=== PATIENT | female | born 1995 | race Caucasian/White ===

== ENCOUNTER 2022-07-18 16:08 | Emergency (ER) | payer OTHER, SELFPAY ==
--- NOTE | ~2022-07-18 | US_ITS ---
EXAMINATION: US OB <=14 wk fetus w TV DATE: 07/18/2022 17:22 INDICATION: Vaginal bleeding during first trimester . TECHNIQUE: Real-time pelvic ultrasound utilizing both a transvaginal and transabdominal probe was pe rformed. The interpreting radiologist was not present for the study. COMPARISON: None. FINDINGS: The uterus measures 11.6 x 5.7 x 9.2 cm. There is an intrauterine gestational sac. A single fetus is identified. The crown rump length measures 2.0 cm, which correlates with an estimated gestational ag e of 8 weeks and 4 days. There is no discernible heart motion on either cine grayscale imaging or M-mode Doppler. The right ovary is not visualized The left ovary measures 3.0 x 1.9 x 1.8 cm. Duraflow identified wit hin the left ovary on color Doppler. There is no free fluid in the pelvis. IMPRESSION: 1. demise with no discernible heart motion in a single intrauterine fetus with crown-rump length of 2.0 cm corresponding to an estimated gestational age of 8 weeks and 4 days. Reviewed, dictated and finalized at location A. OR VICE PRESIDENT & GENERAL COUNSEL IMPRESSION: 1. demise with no discernible heart motion in a single intrauterine fetus with crown-rump length of 2.0 cm corresponding to an estimated gestation al age of 8 weeks and 4 days.
[2022-07-18 16:25] VITALS: BP 123/60; PULSE 89; RESP 16; TEMP 36.4; O2SAT 100
--- NOTE | 2022-07-18 18:23 | ED.FEMALEGU ---
HPI - Female Genitourinary General Chief complaint: Vaginal Bleeding Stated complaint: vaginal bleeding Time Seen by Provider: 07/18/22 18:06 Source: patient Mode of arrival: ambulatory Limitations: no limitations History of Present Illness HPI Narrative: Patient is a 26-year-old female who presents to the ED with report of vaginal spotting. Patient is and currently approx 12 weeks gestation. Patient currently lives in [place] and sees a filter changer, Ari Pompa, with [facility]. She had a confirmed intrauterine via US at 8 weeks gestation there. Patient states today she developed some light brown vaginal spotting. She contacted her EXTERIOR DESIGNER and was told to monitor symptoms. The bleeding then became bright red and she passed a small blood clot. She also developed some lower abdominal cramping. She was then referred to the ED for further evaluation. Patient has not taken any Tylenol today. She does not want any currently. She states the bleeding has resolved for the most part currently. Denies any recent fever, nausea, vomiting, urinary symptoms. Review of Systems Review of Systems: CONSTITUTIONAL: Denies fever, chills, or sweats. CARDIOVASCULAR: Denies chest pain. RESPIRATORY: Denies dyspnea. GASTROINTESTINAL: See HPI. GENITOURINARY: See HPI. All systems reviewed & are unremarkable except as noted in HPI and below PMFSH Past Medical History Medical History No pertinent past medical history Surgical History Surgical History No pertinent past surgical history Social History Social History Smoking status: Never smoker Exam Narrative: GENERAL: Well appearing, obese, non-toxic, in no acute distress. HEAD: Normocephalic, atraumatic. NECK: Supple. No adenopathy, no masses. RESPIRATORY: Airway patent, respirations nonlabored. Clear to auscultation bilaterally, no rales, rhonchi, wheezing. CARDIOVASCULAR: Regular rate and rhythm without murmurs, rubs, or gallops. Radial pulses 2+ and equal bilaterally. ABDOMINAL: Soft, no significant tenderness to palpation, nondistended, no hepatosplenomegaly. Normoactive BS. MUSCULOSKELETAL: Moves all extremities. Strength/ROM intact without gross deformities. SKIN: Warm, dry, normal color. No rashes. NEURO: A&O X3. Speech clear. Cranial nerves II-XII grossly intact. Steady gait. No ataxic movements. PSYCHIATRIC: Appropriate mood and affect. Normal interaction. Course Vital Signs Vital signs: Vital Signs Temperature 97.6 F 07/18/22 16:25 Pulse Rate 89 07/18/22 16:25 Respiratory Rate 16 07/18/22 16:25 Blood Pressure 123/60 07/18/22 16:25 Pulse Oximetry 100 07/18/22 16:25 Oxygen Delivery Room Air 07/18/22 16:25 Temperature 98 F 07/18/22 20:27 Pulse Rate 89 07/18/22 20:27 Respiratory Rate 18 07/18/22 20:27 Blood Pressure 128/79 07/18/22 20:27 Pulse Oximetry 99 07/18/22 20:27 Oxygen Delivery Room Air 07/18/22 16:25 MDM - Female Genitourinary MDM Narrative Medical decision making narrative: Patient presented to ED with vaginal spotting, 12 weeks gestation, G1, P0. Visiting from [place]. Vital stable upon arrival. CBC with mild anemia at 11.7, no records to compare to. Patient denying any active bleeding at this time. Beta quant 2694. Again no records to compare to. Patient's blood type O+, no RhoGAM required. Unfortunately, ultrasound obtained showing demise, no heart tones identified, gestational age 8 weeks 4 days. I discussed lab and imaging findings with patient and parents at bedside. I was able to contact patient's EXTERIOR DESIGNER clinic in [place], talked with EXTERIOR DESIGNER on-call, updated on ultrasound findings and plan. Discussed options with patient, watchful waiting versus induction of miscarriage via medication versus D&C
[2022-07-18 18:29] LABS: Basophils Percent Auto 0.4 % (0.2-1.2); Eosinophils Absolute Auto 0.1 K/mm3 (0-0.3); Eosinophils Percent Auto 0.8 % (0-4.4); Hematocrit 36.1 % (37.0-47.0); Hemoglobin 11.7 g/dL (12.0-15.0); Immature Granulocyte Absolute 0.03 K/mm3 (0.00-0.031); Immature Granulocyte Percent A 0.4 % (0-0.5); Lymphocytes Absolute Auto 1.57 K/mm3 (0.9-3.2); Lymphocytes Percent Auto 18.6 % (18.3-44.2); Mean Corpuscular HGB Conc 32.4 g/dl (32-36); Mean Corpuscular Hemoglobin 27.5 pg (26-34); Mean Corpuscular Volume 84.7 fl (80-100); Mean Platelet Volume 8.9 fl (7.4-10.4); Monocytes Absolute Auto 0.4 K/mm3 (0.1-0.6); Monocytes Percent Auto 4.8 % (2.6-8.5); Neutrophils Absolute Auto 6.3 K/mm3 (1.3-6.7); Platelet Count Result 294 k/mm3 (150-375); Red Blood Count 4.26 M/mm3 (4.2-5.4); Red Cell Distribution Width 13.2 % (11.5-14.5); White Blood Count 8.4 K/mm3 (4.5-10.0)
[2022-07-18 20:27] VITALS: BP 128/79; PULSE 89; RESP 18; TEMP 36.6; O2SAT 99
== END 2022-07-18 20:27 | disposition home or self-care (01) ==
PROVIDERS: Physician Assistant; Emergency Provider Physician Assistant
DX: O02.1 Missed abortion (principal); Z3A.08 8 weeks gestation of pregnancy
CPT/HCPCS: 36415; 76801; 76817; 84702; 85025; 85461; 86850; 86900; 86901; 99284

== ENCOUNTER 2022-07-22 07:33 | Outpatient (CLI) | payer OTHER, SELFPAY ==
--- NOTE | ~2022-07-22 | US_ITS ---
EXAMINATION: US OB <=14 wk fetus w TV DATE: 07/22/2022 08:13 INDICATION: Missed . TECHNIQUE: Real-time transabdominal and transvaginal pelvic ultrasound was performed. COMPARISON: Ultrasound 07/18/2022 FINDINGS: TRANSABDOMINAL ULTRASOUND: The uterus measures 11.1 x 5.5 x 7.5 cm. TRANSVAGINAL ULTRASOUND: The endometrial complex measures 15 mm in thickness. There is a gestational sac in the vagina. The crown rump length measures 2.2 cm, which correlates with an estimated ge stational age of 9 weeks and 0 day(s). heart motion was not identified on the ultrasound from . The right ovary is not visualized. The left ovary measures 3.1 x 2.0 x 1.7 cm. There is no fr ee fluid in the pelvis. IMPRESSION: 1. Spontaneous in progress with the gestational sac now in the vagina. Reviewed, dictated and finalized at location A. IMPRESSION: 1. Spontaneous in progress with the gestational sac now in the vagina .
== END 2022-07-22 07:34 | disposition home or self-care (01) ==
PROVIDERS: Visit Provider Obstetrics & Gynecology
DX: O02.1 Missed abortion (principal)
CPT/HCPCS: 76801; 76817

== ENCOUNTER 2022-07-23 00:43 | Day surgery (SDC) | payer OTHER, SELFPAY ==
[2022-07-21 15:50] VITALS: BMI 30.9
--- NOTE | 2022-07-21 15:53 | PC.NURSE ---
Report to the Outpatient Waiting Room, entrance under the green pavilion located off [facility], at time 0600 on date 07/23/22. Planned Procedure Time: 0730. Time changes happen often and if your time is changed the preop area will call you the afternoon before. - You and your visitor will be asked to self-screen and do not enter if you have any COVID symptoms. - Only one visitor is requested with a max of two and NO children visitors are allowed at this time. - The patient visitor may be requested to leave or wait in car when not with patient due to distancing restrictions. - A mask is optional within the hospital at this time. Patients may have clear liquids (water, carbonated beverages, clear teas, apple juice) until 3 hours prior to surgery with a maximum of 20 ounces. - No food from midnight until time of surgery Take the following medications with a SIP of water the morning of surgery: PAIN PILL IF NEEDED DO NOT STOP ANY OF YOUR OTHER PRESCRIPTION MEDICATIONS PRIOR TO SURGERY ?EXCEPT THE FOLLOWING Medications to discontinue per physician: N/A Date to take last dose: N/A Please no make-up, nail comoran, hairspray, perfume, deodorant, or body powder the day of surgery. No jewelry (including any body piercings) or valuables the day of surgery, leave them at home. Please take a shower or bath the night before, or the morning of, surgery with an antibacterial soap. Wear comfortable, loose fitting clothing. - Jewelry must be removed prior to entering the operating room. Rings and piercings that are not removed may be cut off. - The hospital will not accept responsibility for valuables. - Please leave all valuables, including medications, at home the day of surgery. If you are going home after surgery, a licensed pedicab driver must drive you home. - NO public transportation without another adult if you receive anesthesia. - We recommend that an adult stay with you for 24 hours following discharge. - We also recommend that you do not drive, make important decision, drink alcoholic beverages, or take any drugs that were not prescribed by your health care provider for at least 24 hours after your discharge time. Follow any additional instructions given to you from your surgeon. If you or anyone in your household have experienced Covid symptoms in the past week, please notify your surgeon or the nurse liaison at the phone number below for possible testing. Telephone instructions given to PAPITO ESCOBAR and asked if any additional questions and then verbalized understanding. Patient advised to call surgeon office or pre surgery nurse liaison [phone] if any additional questions.
[2022-07-23] MEDS: ACETAMINOPHEN 500 MG TABLET 1000 MG PO (06:54)
[2022-07-23] MEDS: LACTATED RINGERS 1,000 ML 30 ML IV CONT (06:54)
[2022-07-23 06:55] VITALS: BP 112/61; PULSE 82; RESP 16; TEMP 37.2; O2SAT 100
--- NOTE | 2022-07-23 07:04 | WPDANESEPPF ---
Anes - Initial Pre Proc Eval Procedure: Operation Date: 07/23/22 07:30 Proposed Procedures p Suction Dilatation and Curettage - Jorge Amos MD Date/Time: 07/23/22 07:04 Surgeon: Jorge Amos MD Pre Op Diagnosis: missed ab Patient Data Age: 26 Gender: F Height: 1.63 m Weight: 81.65 kg Allergies Allergy/AdvReac Type Severity Reaction Status Date / Time Sulfa (Sulfonamide AdvReac Severe Swelling Verified 07/21/22 15:49 Antibiotics) of Lip/Tongue/Throat Home Medications Medication Instructions Recorded Confirmed Type hydrocodone 5 mg-acetaminophen 325 1 tablet PO Q4H PRN 07/21/22 History mg tablet Patient hx anesthesia problems: none Family hx anesthesia problems: none Results Review: All pre-operative results and documents have been reviewed as part of the pre-operative evaluation. [facility] Past Medical History Medical History No pertinent past medical history Surgical History Surgical History No pertinent past surgical history Social History Social History Smoking status: Never smoker Alcohol intake: never Substance use: never Substance use type: does not use Living arrangements: with family Additional living arrangements comments: Occupation/Education: unemployed Gender identity (if verbalized by the patient): Female Sexual Orientation (if Verbalized by the Patient): Straight or Heterosexual Spiritual care concerns: No Anes - Eval Final PreProcedure Day of Procedure 07/23/22 07:04 Patient weight: obese Heart: regular rate and rhythm Lungs: clear to auscultation Airway: Mallampati scale class II Neurological: alert and oriented Last oral intake: >/= 8 hours ASA classification: II Emergent: no Anesthetic plan: proceed Anesthesia type and monitoring: general GIVS and standard monitoring Results Review: All pre-operative results and documents have been reviewed as part of the pre-operative evaluation. Informed Consent: The patient's anesthetic plan and its attendant risks and benefits were discussed with the patient/family/POA. Questions were solicited and answers provided to the satisfaction of the patient/family/POA.
--- NOTE | 2022-07-23 07:20 | WPDHPUPDATE1 ---
History and Physical Update Update Date/Time: 07/23/22 07:20 History and Physical has been reviewed, including an updated exam of the patient. There are NO changes in the patient's condition. Risks, benefits, and alternatives have been discussed and questions answered. Patient agrees to proceed with procedure.
[2022-07-23] MEDS: KETOROLAC 30 MG/ML VIAL (*BKC) IV PUSH (07:38)
--- NOTE | 2022-07-23 07:44 | W.PM.PROC2 ---
Procedure Note - Detailed Date of Procedure 07/23/22 Pre-op Diagnosis 1. Incomplete Post-op Diagnosis Same Procedure Performed 1. Suction curettage Surgeon Jorge Amos MD Anesthesia MAC Findings moderate amount of retained products of conception Description of Procedure patient was prepped and draped in the usual manner for this procedure. Cervix was dilated to allow the 8mm suction curette to be placed. Uterus sounded to approximately 9cm, and moderate amount of tissue was removed with suction curettage. Sharp curette then throughout the cavity with no remaining tissue noted. There was minimal to no bleeding at this point and the patient was sent to recovery room in stable condition. Estimated Blood Loss 10 Drains No Packing No Pathology Yes Complications No immediate complications Condition Stable Disposition PACU [facility] Billing Surgery - Charge Forward: Surgery Billing
[2022-07-23 07:45] VITALS: BP 87/45; PULSE 67; RESP 12; O2SAT 93
[2022-07-23 08:15] VITALS: BP 93/54; PULSE 55; RESP 14; O2SAT 97
[2022-07-23 08:40] VITALS: BP 93/48; PULSE 68; RESP 14
[2022-07-23 09:05] VITALS: BP 94/51; PULSE 56; RESP 14
== END 2022-07-23 09:15 | disposition home or self-care (01) ==
PROVIDERS: Visit Provider Obstetrics & Gynecology
PROC: (CPT 59820; principal; 2022-07-23 07:30)
DX: O02.1 Missed abortion (principal)
CPT/HCPCS: 59820; 88305; A9270; J1885; J2250; J3010; J7120